=== PATIENT | female | born 1980 | race Caucasian/White ===

== ENCOUNTER 2018-11-27 20:03 | Emergency (ER) | payer OTHER ==
[2018-11-27] MEDS ORDERED: PROMETHAZINE HCL INJ 25 MG/1 ML VIAL ONE (20:29)
[2018-11-27 20:44] LABS: ABSOLUTE BASOPHILS # (AUTO) 0.1 10^3/uL (0.0-0.2); ABSOLUTE EOSINOPHILS # (AUTO) 0.3 10^3/uL (0.0-0.6); ABSOLUTE LYMPHOCYTES (AUTO) 2.2 10^3/uL (0.5-4.7); ABSOLUTE MONOCYTES (AUTO) 0.7 10^3/uL (0.1-1.4); ABSOLUTE NEUT (AUTO) 3.5 10^3/uL (1.7-8.2); BASOPHILS % (AUTO) 0.9 % (0-2); EOSINOPHILS % (AUTO) 4.4 % (0-6); HEMATOCRIT 35.5 % (36.0-47.0); HEMOGLOBIN 11.6 g/dL (12.0-15.5); LYMPHOCYTES % (AUTO) 32.5 % (13-45); MEAN CORPUSCULAR HGB CONC 32.6 g/dL (32.0-36.0); MEAN CORPUSCULAR VOLUME 92 fl (80-97); MONOCYTES % (AUTO) 11.1 % (3-13); PLATELET COUNT 305 10^3/uL (150-450); RED BLOOD COUNT 3.86 10^6/uL (3.72-5.28); RED CELL DISTRIBUTION WIDTH 13.3 % (11.5-14.0); SEGMENTED NEUTROPHILS % (AUTO) 51.1 % (42-78); TOTAL CELLS COUNTED % (AUTO) 100 %; WHITE BLOOD COUNT 6.8 10^3/uL (4.0-10.5)
[2018-11-27] MEDS ORDERED: PROMETHAZINE HCL INJ 25 MG/1 ML VIAL IM ONE ×2 (20:45→21:46)
[2018-11-27] MEDS ORDERED: HYDROMORPHONE HCL INJ/PF 2 MG/ML AMPULE IV ONE ×2 (20:45→22:35)
[2018-11-27 21:06] LABS: ALANINE AMINOTRANSFERASE 31 U/L (9-52); ALBUMIN 3.9 g/dL (3.5-5.0); ALKALINE PHOSPHATASE 77 U/L (38-126); ANION GAP 12 (5-19); ASPARTATE AMINO TRANSFERASE 20 U/L (14-36); BILIRUBIN,DIRECT 0.3 mg/dL (0.0-0.4); BILIRUBIN,TOTAL 0.3 mg/dL (0.2-1.3); BLOOD UREA NITROGEN 11 mg/dL (7-20); CALCIUM 9.5 mg/dL (8.4-10.2); CARBON DIOXIDE 21 mmol/L (22-30); CHLORIDE 111 mmol/L (98-107); CREATINE KINASE 139 U/L (30-135); LIPASE 88.9 U/L (23-300); POTASSIUM 4.6 mmol/L (3.6-5.0); SODIUM 144.4 mmol/L (137-145); TOTAL PROTEIN 7.1 g/dL (6.3-8.2)
[2018-11-27 21:11] LABS: GLUCOSE 68 mg/dL (75-110)
[2018-11-27 21:17] LABS: CREATINE KINASE MB 0.86 ng/mL (<4.55)
[2018-11-27 21:18] LABS: TROPONIN I < 0.012 ng/mL
[2018-11-27 21:46] LABS: APPEARANCE,URINE CLEAR; BILIRUBIN,URINE NEGATIVE (NEGATIVE); COLOR,URINE STRAW; GLUCOSE, URINE NEGATIVE (NEGATIVE); KETONES,URINE NEGATIVE (NEGATIVE); LEUKOCYTE ESTERASE,URINE NEGATIVE (NEGATIVE); NITRITE,URINE NEGATIVE (NEGATIVE); PROTEIN,URINE NEGATIVE (NEGATIVE); URINE SPECIFIC GRAVITY 1.008; UROBILINOGEN,URINE NEGATIVE mg/dL (<2.0)
--- NOTE | 2018-11-27 22:12 | RADIOLOGY REPORT (SQ) ---
EXAM DESCRIPTION: CT ABDOMEN PELVIS WITHOUT IV CONTRAST COMPLETED DATE/TME: 11/27/2018 21:08 CLINICAL HISTORY: 38 years, Female, RUQ pain, no GB, all to all contrast IV and oral This exam was performed according to our departmental dose-optimization program which includes automated exposure control, adjustment of the mA and/or kVp according to patient size and/or use of iterative reconstruction technique where applicable. FINDINGS: Visualized lung bases are within normal limits. Liver and the spleen, pancreas, adrenal glands and kidneys are within normal limits. No hydronephrosis or biliary dilatation. Status post cholecystectomy. No significant biliary dilatation. No dilated loops of bowel to suggest obstruction. Mild amount of stool in the colon. No free fluid or free air. No abdominal or pelvic lymphadenopathy. Abdominal aorta is within normal limits. Bladder is within normal limits. Status post hysterectomy. IMPRESSION: No acute disease. Status post cholecystectomy. No significant biliary dilatation.
[2018-11-27] MEDS ORDERED: DIPHENHYDRAMINE HCL 50 MG/ML VIAL IV ONE (22:35)
[2018-11-27] MEDS ORDERED: HALOPERIDOL LACTATE INJ 5 MG/1 ML VIAL IV ONE (22:35)
--- NOTE | 2018-11-27 22:47 | ER Document Report ---
Entered by PANFILO ROSA SCRIBE 11/27/182106 Acting as scribe for:STEPH MCINTOSH DO ED General - General Chief Complaint: Abdominal Pain Stated Complaint: CHEST/ABDOMINAL PAIN Time Seen by Provider: 11/27/18 20:23 Mode of Arrival: Ambulatory Information source: Patient Notes: Patient is a 38-year-old female presents to the emergency department complaining of right upper quadrant abdominal pain onset today. Patient states that she and her family recently traveled here from [place], [place] to help her daughter move. She states she had a sudden onset of right upper quadrant abdominal pain which she describes as a sharpness that is "worse than kidney stones and childbirth". Patient also states that when she presses on her abdomen the pain is exacerbated with release of her hand. Patient also complains of dry heaving. Patient denies any saddle anesthesia, hematuria or burning with urination. Patient is currently prescribed Estradiol, gabapentin, Cymbalta and mirtazapine. TRAVEL OUTSIDE OF THE [place] IN LAST 30 DAYS: No - Related Data Allergies/Adverse Reactions: ketorolac [From Toradol] Allergy (Verified 11/27/18 20:06) morphine Allergy (Verified 11/27/18 20:06) ondansetron [From Zofran] Allergy (Verified 11/27/18 20:06) Penicillins Allergy (Verified 11/27/18 20:06) Past Medical History - General Information source: Patient - Social History Smoking Status: Never Smoker Cigarette use (# per day): No Chew tobacco use (# tins/day): No Frequency of alcohol use: None Drug Abuse: None Family History: Reviewed & Not Pertinent Patient has suicidal ideation: No Patient has homicidal ideation: No Renal/ Medical History: Reports: Hx Kidney Stones GI Medical History: Reports: Hx Hiatal Hernia Musculoskeletal Medical History: Reports Hx Arthritis Past Surgical History: Reports: Hx Abdominal Surgery, Hx Cholecystectomy, Hx Hysterectomy, Hx Oral Surgery, Hx Orthopedic Surgery Review of Systems - Review of Systems Constitutional: No symptoms reported EENT: No symptoms reported Cardiovascular: No symptoms reported Respiratory: No symptoms reported Gastrointestinal: See HPI, Abdominal pain, Nausea Genitourinary: No symptoms reported Female Genitourinary: No symptoms reported Musculoskeletal: No symptoms reported Skin: No symptoms reported Hematologic/Lymphatic: No symptoms reported Neurological/Psychological: No symptoms reported -: Yes All other systems reviewed and negative Physical Exam - Notes Notes: GENERAL: Alert, actively dry heaving, appears uncomfortable, interacts well. HEAD: Normocephalic, atraumatic. EYES: Pupils equal, round, and reactive to light. Extraocular movements intact. ENT: Oral mucosa moist, tongue midline. NECK: Full range of motion. Supple. Trachea midline. LUNGS: Clear to auscultation bilaterally, no wheezes, rales, or rhonchi. No respiratory distress. HEART: Regular rate and rhythm. No murmurs, gallops, or rubs. ABDOMEN: Soft. Patient is holding RUQ, will wince and double over when I slowly release hand from RUQ. Mild RLQ tenderness to palpation. Non-distended. Bowel sounds present in all 4 quadrants. No rigidity, when I press and rapidly release the left side of her abdomen or the RLQ she has no pain. EXTREMITIES: Moves all 4 extremities spontaneously. No edema, radial and dorsalis pedis pulses 2/4 bilaterally. No cyanosis. NEUROLOGICAL: Alert and oriented x3. Normal speech. PSYCH: anxious. SKIN: Warm, dry, normal turgor. No rashes or lesions noted. Course - Re-evaluation Re-evalutation: 11/27/18 21:26 CBC does not show any leukocytosis, there is anemia with hemoglobin 11.6, d- dimer negative, chemistries reveal low CO2 at 21, slightly low glucose at 68 however she is currently being kept n.p.o., cardiac enzymes are negative, lipase is normal. Attempted to order a CT scan of the abdomen and pelvis with IV contrast but she states she is allergic to IV contrast, but we then tried to order one with oral contrast but she states that the oral contrast makes her also itch and have a rash. At this time I have ordered a noncontrast CT to rule out any intra-abdominal catastrophe given her degree of tenderness. 11/27/18 22:36 CT scan of the abdomen pelvis is completely negative for intra-abdominal etiology. test is negative. Urinalysis is unremarkable. I find absolutely no explanation for the patient's persistent retching and abdominal pain. Patient states she thinks that the vomiting is coming from the degree of pain that she is having rather than from the vomiting itself. We did discuss the possibility of cyclic vomiting syndrome. Patient adamantly denies using any marijuana or marijuana or CBD based products. Patient is agreeable to trying Haldol and Benadryl anyway to help her abdominal pain and her vomiting. I will give her another dose of Dilaudid 0.5 mg as well. Patient is recommended to follow-up with her GI doc as an outpatient to investigate her abdominal pain and frequent retching. Of note I did discuss the patient's findings and her concerns with the patient and her for 8 minutes and she did not have any retching while I was in the room - Laboratory Result Diagrams: 11/27/18 20:25 11/27/18 20:25 Laboratory results interpreted by me: 11/27/18 11/27/18 20:25 20:25 Hgb 11.6 L Hct 35.5 L Chloride 111 H Carbon Dioxide 21 L Glucose 68 L Creatine Kinase 139 H - EKG Interpretation by Me Additional EKG results interpreted by me: 11/27/18 22:38 EKG shows sinus tachycardia at a rate of 100, normal axis, normal intervals, no ST segment elevations or depressions, no T wave inversions per my interpretation. Discharge - Discharge Clinical Impression: Right upper quadrant abdominal pain, Retching Condition: Stable Disposition: HOME, SELF-CARE Additional Instructions: Today we did not find any cause for your abdominal pain. I also did not find any cause for your vomiting. You were given Dilaudid, Phenergan, Haldol and Benadryl to treat this. Your blood work was all normal. Your CAT scan did not show any signs of blockage or infection. Please follow-up with your primary care physician and your high pressure operator regarding a work-up for your abdominal pain including the possibility of irritable bowel syndrome. Please return for worsening pain, fevers, blood in your stool or any new or concerning symptoms. I personally performed the services described in the documentation, reviewed and edited the documentation which was dictated to the scribe in my presence, and it accurately records my words and actions.
[2018-11-28 00:05] VITALS: BP 100/63
--- NOTE | 2018-11-28 07:41 | EKG REPORT ---
SEVERITY:- OTHERWISE NORMAL ECG - SINUS TACHYCARDIA : Confirmed by: Balwinder Hogue MD 28-Nov-2018 07:40:55
== END 2018-11-27 23:58 | disposition home or self-care (01) ==
LOC: ER 20:03
DX: R10.11 Right upper quadrant pain (principal); R11.10 Vomiting, unspecified; R10.9 Unspecified abdominal pain; R07.9 Chest pain, unspecified; Z79.899 Other long term (current) drug therapy
CPT/HCPCS: 93005; 96376; 99284; 96372; 96374; 96375; 36415; 82553; 82550; 83690; 85025; 81025; 80053; 81001; 84484; 85379; 74176; 93010; J1200; J1630; J1170; J2550